=== PATIENT | male | born 1995 | race Caucasian/White ===

== ENCOUNTER 2017-11-20 23:16 | Emergency (ER) | payer MEDICAID ==
[~2017-11-20] VITALS: Ht 182.9 cm; Wt 104.3 kg
[2017-11-20 23:31] VITALS: BP_SYST 133
[2017-11-21 00:37] VITALS: BP_SYST 133
== END 2017-11-21 00:37 | disposition home or self-care (01) ==
LOC: SED 23:16
DX: L03.116 Cellulitis of left lower limb (principal); Z86.14 Personal history of Methicillin resistant Staphylococcus aureus infection; Z88.1 Allergy status to other antibiotic agents
CPT/HCPCS: 99283

== ENCOUNTER 2019-03-29 21:11 | Emergency (ER) | payer MEDICAID ==
[~2019-03-29] VITALS: Ht 182.9 cm; Wt 102.1 kg
[2019-03-29 21:20] VITALS: BP_SYST 144
[2019-03-29 22:00] VITALS: BP_SYST 128
== END 2019-03-29 22:00 | disposition home or self-care (01) ==
LOC: SED 21:11
DX: S93.402A Sprain of unspecified ligament of left ankle, initial encounter (principal); Z88.1 Allergy status to other antibiotic agents; W50.0XXA Accidental hit or strike by another person, initial encounter; Y93.67 Activity, basketball; Y92.89 Other specified places as the place of occurrence of the external cause; Y99.8 Other external cause status
CPT/HCPCS: 99283

== ENCOUNTER 2023-11-13 07:01 | Emergency (ER) | payer MEDICAID ==
[~2023-11-13] VITALS: Ht 182.9 cm; Wt 108.9 kg
[2023-11-13 07:01] VITALS: BP_SYST 106; PULSE 94; RESP 19; TEMP 100; O2SAT 98
[2023-11-13] MEDS ORDERED: ACETAMINOPHEN 500 MG TABLET PO ONE (07:15)
[2023-11-13 08:12] LABS: INFLUENZA TYPE B NEGATIVE (NEGATIVE)
[2023-11-13 08:19] LABS: INFLUENZA TYPE A Positive (NEGATIVE)
[2023-11-13] MEDS ORDERED: OSEL75CA PO (08:23)
[2023-11-13 08:32] VITALS: BP_SYST 106; PULSE 88; RESP 17; TEMP 99.8; O2SAT 95
== END 2023-11-13 08:32 | disposition home or self-care (01) ==
LOC: SED 07:01
DX: J10.1 Influenza due to other identified influenza virus with other respiratory manifestations (principal); R50.9 Fever, unspecified; R05.9 Cough, unspecified; R51.9 Headache, unspecified; Z88.1 Allergy status to other antibiotic agents; Z79.899 Other long term (current) drug therapy; Z20.822 Contact with and (suspected) exposure to COVID-19
CPT/HCPCS: 36415; 99283